=== PATIENT | female | born 1965 | race Caucasian/White ===

== ENCOUNTER → 2019-08-21 | Outpatient (CLI) | payer OTHER ==
[~2019-08-21] MED LIST: ALL10TAB29 PO; AMLO10TA5 PO; ASPI81TA85 PO; ATOR1TAB21 PO; AZEL1SPR3 INH; Avelox PO; ESCI20TA PO; FLUTISP INH; FOLI1TAB11 PO; HYDR25TAB PO; MAGN400T3 PO; METF10004 PO; METO50TA7 PO; MICR1TAB18 PO; NORMAL SALINE 0.9%; OMEP-221 PO; POTA1TAB23 PO; TELM1TAB35 PO; VICODINE PO; VITA50005 PO; [UNRECOGNIZED DRUG - CODE] PO; [UNRECOGNIZED DRUG - OTHER]; [UNRECOGNIZED DRUG - REMARK]
== END ==
LOC: M LABSMTC 11:44
PROVIDERS: ATTEND Anesthesiology
DX: Z01.812 Encounter for preprocedural laboratory examination (principal); Z11.59 Encounter for screening for other viral diseases

== ENCOUNTER 2019-08-24 10:35 | Day surgery (SDC) | payer OTHER, BC ==
[~2019-08-24] VITALS: Ht 154.9 cm; Wt 119.7 kg
[~2019-08-24 10:35] MED LIST changes: +NS 1,000 ML IV ONE
[2019-08-24] MEDS ORDERED: propofoL 200 MG/20 ML VIAL As Ordered ONE (11:09)
[2019-08-24] MEDS ORDERED: LIDOCAINE 2% 100MG/5ML SDV (FOR ANES.) As Ordered ONE (11:09)
--- NOTE | 2019-08-24 12:00 | ROOR ---
Patient Name: Tammie Daniel Procedure Date: 08/24/2019 11:35 AM Date of : 1965 Age: 54 Room: [facility] Gender: Female Note Status: Finalized Procedure: Total Colonoscopy to Cecum + Cold Snare Polypectomy + Hemoclips Indications: High risk colon cancer surveillance: Personal history of colonic polyps, Last colonoscopy: 2013 Providers: Jax Nagel MD Referring MD: JUSTICE GANT MD Requesting Provider: Medicines: Monitored Anesthesia Care Complications: No immediate complications. Procedure: Pre-Anesthesia Assessment: - The heart rate, respiratory rate, oxygen saturations, blood pressure, adequacy of pulmonary ventilation, and response to care were monitored throughout the procedure. The Colonoscope was introduced through the anus and advanced to the cecum, identified by appendiceal orifice and ileocecal valve. The colonoscopy was performed without difficulty. The patient tolerated the procedure well. The quality of the bowel preparation was excellent. Findings: The perianal and digital rectal examinations were normal. Non-bleeding internal hemorrhoids were found during retroflexion. The hemorrhoids were small and Grade I (internal hemorrhoids that do not prolapse). A small polyp was found at 50 cm proximal to the anus. The polyp was sessile. The polyp was removed with a cold snare. Resection and retrieval were complete. To prevent bleeding after the polypectomy, one hemostatic clip was successfully placed (MR conditional). There was no bleeding at the end of the procedure. The exam was otherwise without abnormality on direct and retroflexion views. Impression: - Non-bleeding internal hemorrhoids. - One small polyp at 50 cm proximal to the anus, removed with a cold snare. Resected and retrieved. Clip (MR conditional) was placed. - The examination was otherwise normal on direct and retroflexion views. - The exam was otherwise normal to the cecum. Recommendation: - Patient has a contact number available for emergencies. The signs and symptoms of potential delayed complications were discussed with the patient. Return to normal activities tomorrow. Written discharge instructions were provided to the patient. - High fiber diet. - Discharge patient to home. - Continue present medications. - Await pathology results. - Telephone GI clinic for pathology results in 1 week. - Repeat colonoscopy in 7 years for surveillance based on pathology results. - Return to referring physician. - The findings and recommendations were discussed with the patient's family. Jax Nagel MD Jax Nagel MD 08/24/2019 11:59:55 AM Electronically signed by Jax Nagel MD Number of Addenda: 0 Note Initiated On: 08/24/2019 11:35 AM Estimated Blood Loss: Estimated blood loss: none.
[2019-08-24 12:25] VITALS: BP 115/66
== END 2019-08-24 12:28 | disposition home or self-care (01) ==
LOC: M OPP 10:35
PROVIDERS: ATTEND Internal Medicine Gastroenterology
DX: Z12.11 Encounter for screening for malignant neoplasm of colon (principal); Z86.010 Personal history of colon polyps; K64.0 First degree hemorrhoids; D12.6 Benign neoplasm of colon, unspecified; Z79.82 Long term (current) use of aspirin; Z79.84 Long term (current) use of oral hypoglycemic drugs; Z79.899 Other long term (current) drug therapy

== ENCOUNTER → 2021-05-23 | Outpatient (CLI) | payer OTHER ==
[~2021-05-23] MED LIST changes: -ALL10TAB29 PO; -AMLO10TA5 PO; +AMLO1TAB25 PO; -ASPI81TA85 PO; +ASPI81TA86 PO; +CETI-24 PO; +ERGO500029 PO; -ESCI20TA PO; +ESCI20TA16 PO; +HYDR-3490 PO; -HYDR25TAB PO; -MAGN400T3 PO; +MAGN400T33 PO; -NS 1,000 ML IV ONE; -OMEP-221 PO; +OMEP40CA5 PO; -VITA50005 PO
== END ==
LOC: M PLAIMG 13:39
PROVIDERS: ATTEND Physician Assistant Surgical
DX: M51.34 Other intervertebral disc degeneration, thoracic region (principal); M51.36 Other intervertebral disc degeneration, lumbar region; M51.37 Other intervertebral disc degeneration, lumbosacral region; M51.26 Other intervertebral disc displacement, lumbar region; M51.27 Other intervertebral disc displacement, lumbosacral region

== ENCOUNTER → 2021-06-23 | Outpatient (CLI) | payer OTHER ==
[2021-06-23 11:13] LABS: PLATELET COUNT, AUTOMATED 379 10^3/uL (150-450)
[2021-06-23 11:23] LABS: INR 0.97; PROTHROMBIN TIME 13.3 SECONDS (12.7-14.5)
[2021-06-23 11:24] LABS: PARTIAL THROMBOPLASTIN TIME 28.3 SECONDS (25.9-37.0)
[2021-06-23 11:38] LABS: HCG, SERUM QUALITATIVE NEGATIVE (NEGATIVE)
== END ==
LOC: M LAB 10:24
PROVIDERS: ATTEND Physical Medicine & Rehabilitation
DX: M51.36 Other intervertebral disc degeneration, lumbar region (principal)

== ENCOUNTER → 2021-08-16 | Outpatient (CLI) | payer OTHER ==
[~2021-08-16] MED LIST changes: +ISOVUE-300 61% 50ML VIAL As Ordered ONE; +LIDOCAINE 1% MDV 20ML VIAL As Ordered ONE; +methylPREDNISolone SUSP 40MG/ML 1ML VIAL (DEPO MEDROL) As Ordered ONE
== END ==
LOC: M RADPRO 14:47
PROVIDERS: ATTEND Physician Assistant Surgical
DX: M70.62 Trochanteric bursitis, left hip (principal)
CPT/HCPCS: 20610; 77002; J1030; Q9967

== ENCOUNTER → 2022-01-12 | Outpatient (RCR) | payer OTHER ==
[~2022-01-12] MED LIST changes: -ISOVUE-300 61% 50ML VIAL As Ordered ONE; -LIDOCAINE 1% MDV 20ML VIAL As Ordered ONE; -MICR1TAB18 PO; +NORE1TAB94 PO; -methylPREDNISolone SUSP 40MG/ML 1ML VIAL (DEPO MEDROL) As Ordered ONE
== END ==
LOC: M PT 12-26 07:43
PROVIDERS: ATTEND Registered Nurse
DX: I89.0 Lymphedema, not elsewhere classified (principal)

== ENCOUNTER 2022-02-06 12:25 | Outpatient (RCR) | payer OTHER | END 2022-02-12 | LOC: M PT 12:25 | PROVIDERS: ATTEND Registered Nurse | DX: I89.0 Lymphedema, not elsewhere classified (principal) ==

== ENCOUNTER 2022-08-07 10:00 | Outpatient (RCR) | payer OTHER ==
[~2022-08-07 10:00] MED LIST changes: +FLUT50SP17 INH; -FLUTISP INH
== END 2022-08-12 ==
LOC: M PT 10:00
PROVIDERS: ATTEND Registered Nurse
DX: I89.0 Lymphedema, not elsewhere classified (principal)

== ENCOUNTER 2023-08-14 09:50 | Outpatient (RCR) | payer OTHER ==
[~2023-08-14 09:50] MED LIST changes: -FLUT50SP17 INH; +FLUTISP INH
== END 2023-09-13 ==
LOC: M PT 09:50
PROVIDERS: ATTEND Registered Nurse
DX: I89.0 Lymphedema, not elsewhere classified (principal); R21 Rash and other nonspecific skin eruption

== ENCOUNTER → 2023-10-07 | Outpatient (CLI) | payer OTHER | LOC: M RAD 07:46 | PROVIDERS: ATTEND Otolaryngology | DX: J32.0 Chronic maxillary sinusitis (principal) ==